=== PATIENT | male | born 1985 | race Caucasian/White ===

== ENCOUNTER 2019-09-29 13:39 | Emergency (ER) | payer BC ==
[~2019-09-29] VITALS: Ht 182.9 cm; Wt 72.1 kg
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
--- NOTE | 2019-09-29 14:20 | NUR ---
Xray in progress at BS.
--- NOTE | 2019-09-29 14:22 | NUR ---
ANNA JEAN AT BEDSIDE FOR PLACING CAST AT R HAND
[2019-09-29] MEDS ORDERED: IBUPROFEN 400 MG TABLET ONE (14:56)
[2019-09-29 14:58] VITALS: BP 120/71
--- NOTE | 2019-09-29 14:58 | NUR ---
Patient discharged to home in stable condition. Written and verbal after care instructions given. Patient verbalizes understanding of instruction.
[2019-09-29] MEDS ORDERED: IBUPROFEN 400 MG TABLET PO ONE (15:00)
== END 2019-09-29 14:59 | disposition home or self-care (01) ==
LOC: ER 13:39
DX: S62.111A Displaced fracture of triquetrum [cuneiform] bone, right wrist, initial encounter for closed fracture (principal); S70.01XA Contusion of right hip, initial encounter; W18.39XA Other fall on same level, initial encounter; Y93.89 Activity, other specified; Y92.89 Other specified places as the place of occurrence of the external cause; Y99.8 Other external cause status
CPT/HCPCS: 73130-TC